=== PATIENT | female | born 1950 | race Two or more races ===

== ENCOUNTER 2022-06-07 15:51 | Emergency (ER) | payer OTHER ==
[~2022-06-07] VITALS: Ht 160 cm; Wt 73.0 kg
[2022-06-07] MEDS ORDERED: ZESTORETIC 20-1 EAC1 PO (16:10)
== END 2022-06-07 22:18 | disposition home or self-care (01) ==
LOC: ER 15:51
DX: S00.93XA Contusion of unspecified part of head, initial encounter (principal); W18.39XA Other fall on same level, initial encounter; Y93.89 Activity, other specified; Y92.89 Other specified places as the place of occurrence of the external cause; Y99.8 Other external cause status; I10 Essential (primary) hypertension